=== PATIENT | female | born 1955 | race Caucasian/White ===

== ENCOUNTER 2021-04-24 07:50 | Outpatient (CLI) | payer MEDICARE, OTHER ==
[2021-04-24 14:40] LABS: BASOPHILS # (AUTO) 0.1 10^3/uL (0.0-0.1); BASOPHILS % (AUTO) 1.4 %; EOSINOPHILS # (AUTO) 0.1 10^3/uL (0.0-0.7); EOSINOPHILS % (AUTO) 2.4 %; HCT - HEMATOCRIT 37.3 % (37.0-47.0); HGB - HEMOGLOBIN 12.2 g/dL (12.0-16.0); LYMPHOCYTES # (AUTO) 1.6 10^3/uL (1.5-3.5); LYMPHOCYTES % (AUTO) 37.2 %; MEAN CORPUSCULAR HEMOGLOBIN 30.3 pg (27.0-31.0); MEAN CORPUSCULAR HGB CONC 32.7 g/dL (32.0-36.0); MEAN CORPUSCULAR VOLUME 92.6 fL (81.0-99.0); MEAN PLATELET VOLUME 8.9 fL (7.9-10.8); MONOCYTES # (AUTO) 0.5 10^3/uL (0.0-1.0); MONOCYTES % (AUTO) 11.2 %; NEUTROPHILS % (AUTO) 47.6 %; PLT - PLATELET COUNT 241 10^3/uL (130-450); RED BLOOD COUNT 4.03 10^6/uL (4.20-5.40); RED CELL DISTRIBUTION WIDTH 12.7 % (12.0-15.0); WHITE BLOOD COUNT 4.2 x10^3/uL (4.8-10.8)
[2021-04-24 14:59] LABS: ALBUMIN/GLOBULIN RATIO 1.9 (1.0-2.2); ALKALINE PHOSPHATASE 22 IU/L (42-121); ALT ALANINE AMINOTRANSFERASE 25 IU/L (10-60); AST ASPARTATE AMINOTRANSFERASE 28 IU/L (10-42); BUN - BLOOD UREA NITROGEN 16 mg/dL (6-20); CALCIUM 9.9 mg/dL (8.5-10.3); CARBON DIOXIDE - CO2 27 mmol/L (21-32); CHLORIDE 96 mmol/L (101-111); CHOL/HDL RATIO 1.9 (<4.4); CHOLESTEROL 199 mg/dL; CREATININE 0.9 mg/dL (0.4-1.0); GFR - MDRD 63 (>89); GLUCOSE 88 mg/dL (70-100); HDL CHOLESTEROL 105 mg/dL; LDL CHOLESTEROL,CALCULATED 72 mg/dL; LDL/HDL RATIO 0.7 (<4.4); POTASSIUM 4.2 mmol/L (3.5-5.0); SODIUM 134 mmol/L (135-145); TOTAL PROTEIN 7.6 g/dL (6.7-8.2); TRIGLYCERIDES 111 mg/dL; VLDL CHOLESTEROL 22 mg/dL
[2021-04-24 15:04] LABS: THYROID STIMULATING HORMONE 0.44 uIU/mL (0.34-5.60)
[2021-04-24 15:24] LABS: BILIRUBIN,TOTAL 0.7 mg/dL (0.2-1.0)
== END 2021-04-24 07:51 | disposition home or self-care (01) ==
LOC: LAB.S 07:50
PROVIDERS: ATTEND Registered Nurse
DX: E03.9 Hypothyroidism, unspecified (principal); E78.5 Hyperlipidemia, unspecified; F32.9 Major depressive disorder, single episode, unspecified; I10 Essential (primary) hypertension
CPT/HCPCS: 36415; 80053; 80061; 83721; 84443; 85025

== ENCOUNTER 2021-07-21 16:40 | Outpatient (CLI) | payer MEDICARE, OTHER | END 2021-07-21 16:41 | disposition home or self-care (01) | LOC: COV 16:40 | PROVIDERS: ATTEND Family Medicine | DX: R05.9 Cough, unspecified (principal); R53.83 Other fatigue; R07.0 Pain in throat; J34.89 Other specified disorders of nose and nasal sinuses; Z20.822 Contact with and (suspected) exposure to COVID-19 ==

== ENCOUNTER 2021-08-02 13:05 | Outpatient (CLI) | payer MEDICARE, OTHER ==
--- NOTE | 2021-08-04 10:21 | Mammography Report ---
BILATERAL DIGITAL SCREENING MAMMOGRAM 3D/2D: 08/02/2021 CLINICAL: Routine screening. Comparison is made to exams dated: 09/27/2019 mammogram, 10/05/2017 mammogram, 07/24/2015 mammogram, and 10/06/2011 mammogram - [facility]. The tissue of both breasts is heterogeneously dense. This may lower the sensitivity of mammography. No significant masses, calcifications, or other findings are seen in either breast. There has been no significant interval change. IMPRESSION: NEGATIVE There is no mammographic evidence of malignancy. A 1 year screening mammogram is recommended. This exam was interpreted at Station ID: [id number]. NOTE: For mammograms, a report in lay terms will be sent to the patient. Approximately 15% of breast malignancies will not be visualized mammographically. In the management of a palpable breast mass, a negative mammogram must not discourage biopsy of a clinically suspicious lesion. Electronically Signed By: Ángel Castillo M.D. [facility] [email or web address]:08/03/2021 13:37:12 ACR BI-RADS Category 1: Negative 3341F PARENCHYMAL PATTERN: (D) - The breast(s) demonstrate(s) heterogeneously dense fibroglandular ganesh galan. BI-RADS CATEGORY: (1) - 1 RECOMMENDATION: (ANNUAL) - Recommend routine annual screening mammography. [id number] 1 year screening LATERALITY: (B)
== END 2021-08-02 13:06 | disposition home or self-care (01) ==
LOC: DI.S 13:05
DX: Z12.31 Encounter for screening mammogram for malignant neoplasm of breast (principal)

== ENCOUNTER 2021-09-23 09:47 | Emergency (ER) | payer MEDICARE, OTHER ==
--- NOTE | 2021-09-23 12:26 | ED Physician Documentation ---
PD [facility] HEENT - Stated complaint Stated Complaint: L EAR PX - Chief complaint Chief Complaint: Heent - History obtained from History obtained from: Patient - History of Present Illness Timing - onset: How many days ago (few) Timing - duration: Days (few) Timing - details: Gradual onset, Still present Location: Left ear. No: Throat, Mouth Improves: No: Medication (she was using Ciprodex drops as has had OE in the past and treating it with leftover meds from prior. No improvement over past day with its use.) Associated symptoms: No: Fever, Congestion, Rhinorrhea, Unable to swallow, Headache Similar symptoms before: Diagnosis (prior episodes have been from OE. This feels different though with hearing decreased and not improving.) Recently seen: Not recently seen Review of Systems Constitutional: denies: Fever, Chills Ears: reports: Loss of hearing. denies: Drainage/discharge Nose: denies: Rhinorrhea / runny nose, Congestion, Sinus pressure / pain Throat: denies: Sore throat Respiratory: denies: Cough Skin: denies: Rash, Lesions PD PAST MEDICAL HISTORY - Past Medical History Cardiovascular: Hypertension, High cholesterol Respiratory: None Neuro: None GI: GERD - Present Medications Home Medications: Ambulatory Orders Medication Instructions Recorded Confirmed Chlorthalidone 25 mg ORAL DAILY 09/23/21 09/23/21 Ciproflox/Dexameth Otic Drops 4 drops LEFTEAR BID 5 Days #7.5 ml 09/23/21 [Ciprodex Otic Drops] Escitalopram Oxalate 20 mg PO DAILY 09/23/21 09/23/21 Fenofibrate,Micronized 200 mg PO DAILY 09/23/21 09/23/21 [Fenofibrate] Levothyroxine [Synthroid] 112 mcg PO QDAC 09/23/21 09/23/21 Lisinopril [Zestril] 20 mg PO DAILY 09/23/21 09/23/21 Pantoprazole [Protonix] 40 mg PO DAILY 09/23/21 09/23/21 Rosuvastatin Calcium [Crestor] 40 mg PO DAILY PM 09/23/21 09/23/21 cephALEXin [Keflex] 500 mg PO TID #20 cap 09/23/21 - Allergies Allergies/Adverse Reactions: Allergies Allergy/AdvReac Type Severity Reaction Status Date / Time Iodinated Contrast Media Allergy Hives Verified 09/23/21 10:01 PD ED PE NORMAL - Vitals Vital signs reviewed: Yes - General General: Alert and oriented X 3, No acute distress, Well developed/nourished - HEENT HEENT: Pharynx benign. No: Ears normal (right appears normal. Left ear with some wax in canal but not obstructing. The canal has some medial irritation but not red/swollen. The TM has redness and appearing fluid behind. Poor mobility with her trying ear pressure maneuver. ) Results - Vitals Vitals: Oxygen O2 Source Room air PD MEDICAL DECISION MAKING - ED course Complexity details: considered differential, d/w patient Departure - Departure Disposition: Home, Self Care Clinical Impression: Otitis media Qualifiers: Otitis media type: suppurative Chronicity: acute Laterality: left Recurrence: non-recurrent Spontaneous tympanic membrane rupture: without spontaneous rupture Qualified Code(s): H66.002 - Acute suppurative otitis media without spontaneous rupture of ear drum, left ear Condition: Stable Record reviewed to determine appropriate education?: Yes Instructions: ED Otitis Media Acute Adult Follow-Up: Allyssa Sinclair ARNP [Primary Care Provider] - [facility] [Provider Group] Prescriptions: Ciproflox/Dexameth Otic Drops [Ciprodex Otic Drops] 4 drops LEFTEAR BID 5 Days #7.5 ml cephALEXin [Keflex] 500 mg PO TID #20 cap Comments: The eardrum does appear reddened with some fluid behind it consistent with middle ear infection. The canal has some mild irritation and a mild amount of wax. You could use some wax drops in or peroxide with water to help loosen the earwax so that the drops get in there more effectively. The wax is not blocking the passageway per se. Cephalexin antibiotic 3 times a day for a week as directed. You can continue the eardrops twice daily for the next few days as well. Tylenol or ibuprofen as needed for pains. I transmitted the prescriptions to [facility] in [place]. Discharge Date/Time: 09/23/21 12:58
[2021-09-23] MEDS ORDERED: cephALEXin 250 MG CAPSULE PO STA (12:43)
[2021-09-23] MEDS ORDERED: CHERRY SYRUP 10 ML UDC PO ONE (12:43)
[2021-09-23] MEDS ORDERED: DEXAMETHASONE 10 MG/ML VIAL PO STA (12:43)
[2021-09-23] MEDS ORDERED: ACETAMINOPHEN 325 MG TABLET PO STA (12:43)
[2021-09-23 12:55] VITALS: BP 165/93
== END 2021-09-23 12:58 | disposition home or self-care (01) ==
LOC: ED 09:47
DX: H66.002 Acute suppurative otitis media without spontaneous rupture of ear drum, left ear (principal); I10 Essential (primary) hypertension
CPT/HCPCS: 99282; 99283; A9270

== ENCOUNTER 2022-07-07 07:10 | Outpatient (CLI) | payer MEDICARE, OTHER ==
[2022-07-07 14:35] LABS: BASOPHILS # (AUTO) 0.1 10^3/uL (0.0-0.1); BASOPHILS % (AUTO) 1.3 %; EOSINOPHILS # (AUTO) 0.1 10^3/uL (0.0-0.7); EOSINOPHILS % (AUTO) 1.1 %; HCT - HEMATOCRIT 37.2 % (37.0-47.0); HGB - HEMOGLOBIN 12.1 g/dL (12.0-16.0); LYMPHOCYTES # (AUTO) 2.3 10^3/uL (1.5-3.5); LYMPHOCYTES % (AUTO) 36.9 %; MEAN CORPUSCULAR HEMOGLOBIN 30.1 pg (27.0-31.0); MEAN CORPUSCULAR HGB CONC 32.5 g/dL (32.0-36.0); MEAN CORPUSCULAR VOLUME 92.5 fL (81.0-99.0); MEAN PLATELET VOLUME 8.8 fL (7.9-10.8); MONOCYTES # (AUTO) 0.5 10^3/uL (0.0-1.0); MONOCYTES % (AUTO) 7.3 %; NEUTROPHILS # (AUTO) 3.3 10^3/uL (1.5-6.6); NEUTROPHILS % (AUTO) 53.1 %; PLT - PLATELET COUNT 299 10^3/uL (130-450); RED BLOOD COUNT 4.02 10^6/uL (4.20-5.40); RED CELL DISTRIBUTION WIDTH 12.3 % (12.0-15.0); WHITE BLOOD COUNT 6.1 x10^3/uL (4.8-10.8)
[2022-07-07 15:19] LABS: THYROID STIMULATING HORMONE 0.35 uIU/mL (0.34-5.60)
[2022-07-07 15:32] LABS: ALBUMIN/GLOBULIN RATIO 1.9 (1.0-2.2); ALKALINE PHOSPHATASE 26 IU/L (42-121); ALT ALANINE AMINOTRANSFERASE 21 IU/L (10-60); AST ASPARTATE AMINOTRANSFERASE 27 IU/L (10-42); BILIRUBIN,TOTAL 0.7 mg/dL (0.2-1.0); BUN - BLOOD UREA NITROGEN 14 mg/dL (6-20); CALCIUM 10.1 mg/dL (8.5-10.3); CARBON DIOXIDE - CO2 27 mmol/L (21-32); CHLORIDE 98 mmol/L (101-111); CHOLESTEROL 206 mg/dL; CREATININE 0.9 mg/dL (0.4-1.0); GFR - MDRD 62 (>89); GLUCOSE 95 mg/dL (70-100); HDL CHOLESTEROL 69 mg/dL; LDL CHOLESTEROL,CALCULATED 88 mg/dL; LDL/HDL RATIO 1.3 (<4.4); SODIUM 136 mmol/L (135-145); TOTAL PROTEIN 7.7 g/dL (6.7-8.2); TRIGLYCERIDES 244 mg/dL; VLDL CHOLESTEROL 49 mg/dL
== END 2022-07-07 07:11 | disposition home or self-care (01) ==
LOC: LAB.S 07:10
PROVIDERS: ATTEND Registered Nurse
DX: E78.5 Hyperlipidemia, unspecified (principal); E03.9 Hypothyroidism, unspecified; Z79.899 Other long term (current) drug therapy
CPT/HCPCS: 36415; 80053; 80061; 83721; 84443; 85025

== ENCOUNTER 2022-07-07 09:00 | Outpatient (CLI) | payer MEDICARE, OTHER ==
[2022-07-07 14:55] LABS: BILIRUBIN,URINE NEGATIVE (NEGATIVE); GLUCOSE, URINE (UA) NEGATIVE (NEGATIVE); KETONES,URINE (UA) NEGATIVE (NEGATIVE); LEUKOCYTE ESTERASE, URINE SMALL (NEGATIVE); NITRITE,URINE NEGATIVE (NEGATIVE); OCCULT BLOOD,URINE TRACE-INTA (NEGATIVE); PROTEIN,URINE 30 mg/dL (NEGATIVE); UROBILINOGEN,URINE 0.2 (NORMAL) E.U./dL (NORMAL)
[2022-07-07 14:57] LABS: CLARITY,URINE HAZY (CLEAR)
[2022-07-07 15:12] LABS: BACTERIA,URINE Few /HPF (None Seen); RBC,URINE 0-5 /HPF (0-5); SQUAMOUS EPITHELIAL CELL,UR FEW Squamous (<= Few); WBC,URINE >25 /HPF (0-5)
== END 2022-07-07 23:59 | disposition home or self-care (01) ==
LOC: LAB.S 09:00
PROVIDERS: ATTEND Emergency Medicine
DX: R30.0 Dysuria (principal); E78.5 Hyperlipidemia, unspecified; Z79.899 Other long term (current) drug therapy; E03.9 Hypothyroidism, unspecified
CPT/HCPCS: 36415; 80053; 80061; 81001; 83721; 84443; 85025; 87086; 87181

== ENCOUNTER 2022-08-16 09:59 | Outpatient (CLI) | payer MEDICARE, OTHER ==
--- NOTE | 2022-08-17 11:14 | Mammography Report ---
BILATERAL DIGITAL SCREENING MAMMOGRAM 3D/2D: 08/16/2022 CLINICAL: Routine screening. Comparison is made to exams dated: 08/02/2021 mammogram - , 09/27/2019 m ammogram, and 10/05/2017 mammogram - [facility]. Both breasts are heterogeneously dense, which may obscure small masses (category c / 51-75% glandular tissue). No significant masses, calcifications, or other findings are seen in either breast. There has been no significant interval change. IMPRESSION: NEGATIVE There is no mammographic evidence of malignancy. A 1 year screening mammogram is recommended. Based on the Tyrer Cuzick model (a risk assessment model) the patients lifetime risk is 9.6% and her 10 year risk is 5.1%. According to the ACR, ACS, and NCCN guidelines, an annual breast MRI exam magdy g with mammogram is recommended if the patients lifetime risk is 20% or greater. This exam was interpreted at Station ID: [id number]. NOTE: For mammograms, a report in lay terms will be sent to the patient. Approximately 15% of breast malignancies will not be visualized mammographically. In the management of a palpable breast mass, a negative mammogram must not discourage biopsy of a clinically suspicious lesion. Electronically Signed By: Robbie flores/veronica:08/16/2022 11:44:42 ACR BI-RADS Category 1: Negative 3341F PARENCHYMAL PATTERN: (D) - The breast(s) demonstrate(s) heterogeneously dense fibroglandular parmikalay ma. BI-RADS CATEGORY: (1) - 1 RECOMMENDATION: (ANNUAL) - Recommend routine annual screening mammography. [id number] 1 year screening LATERALITY: (B)
== END 2022-08-16 10:00 | disposition home or self-care (01) ==
LOC: DI.S 09:59
PROVIDERS: ATTEND Registered Nurse
DX: Z12.31 Encounter for screening mammogram for malignant neoplasm of breast (principal)

== ENCOUNTER 2023-03-17 11:58 | Day surgery (SDC) | payer MEDICARE, OTHER ==
[2023-03-17] MEDS ORDERED: LACTATED RINGERS 1,000 ML IV ONE (12:04)
--- NOTE | 2023-03-17 13:06 | ANESTHESIA ---
Pre-Anesthesia VS, & Labs - Diagnosis screening - Procedure colonoscopy Vital Signs: Temp Pulse Resp BP Pulse Ox O2 Flow Rate 36.4 C L 90 16 120/70 100 0 03/17/23 12:13 03/17/23 12:13 03/17/23 12:13 03/17/23 12:13 03/17/23 12:13 03/17/23 12:13 Height: 5 ft 7 in Weight (kg): 60 kg Body Mass Index: 20.7 BMI Classification: Normal - NPO Other (prep as directed) - Is Patient ?: No Home Medications and Allergies Chlorthalidone 25 mg ORAL DAILY 09/23/21 Escitalopram Oxalate 20 mg PO DAILY 09/23/21 Fenofibrate,Micronized [Fenofibrate] 200 mg PO DAILY 09/23/21 Levothyroxine [Synthroid] 112 mcg PO QDAC 09/23/21 Lisinopril [Zestril] 20 mg PO DAILY 09/23/21 Pantoprazole [Protonix] 40 mg PO DAILY 09/23/21 Rosuvastatin Calcium [Crestor] 40 mg PO DAILY PM 09/23/21 Allergies/Adverse Reactions: Allergies Allergy/AdvReac Type Severity Reaction Status Date / Time Iodinated Contrast Media Allergy Hives Verified 03/16/23 13:15 Anes History & Medical History - Anesthetic History Anesthesia Complications: reports: No previous complications - Medical History Cardiovascular: reports: Hypertension, High cholesterol Pulmonary: reports: None Gastrointestinal: reports: GERD Urinary: reports: None Neuro: reports: None Musculoskeletal: reports: None Endocrine/Autoimmune: reports: HyPOthyroidism Blood Disorders: reports: None Skin: reports: None Smoking Status: Never smoker Psychosocial: reports: Alcohol (rare) - Surgical History Eyes Ears Nose Throat (EENT): reports: Other Exam General: Alert, Oriented x3 Dental: WNL Mouth Openin Fingerbreadth Neck Mobility: Normal Mallampati classification: II Thyromental Distance: 4-6 cm Respiratory: Lungs clear Cardiovascular: Regular rate Plan Anesthesia Type: Total IV Consent for Procedure(s) Verified and Reviewed: Yes Code Status: Attempt Resuscitation ASA classification: 2-Mild systemic disease Is this case an emergency?: No
[2023-03-17] MEDS ORDERED: PROPOFOL 500 MG/50 ML 500 MG/50 ML VIAL ONE (13:18)
[2023-03-17] MEDS ORDERED: GLYCOPYRROLATE 1 MG/5 ML VIAL ONE (13:51)
[2023-03-17] MEDS ORDERED: LACTATED RINGERS 300 ML IV ONE (14:14)
[2023-03-17 14:16] VITALS: BP 113/75
--- NOTE | 2023-03-17 14:27 | ANESTHESIA POST OP EVALUATION ---
Anesthesia Post Eval - Post Anesthesia Eval Vitals: Last Vital Signs Temp 36.5 C 03/17/23 14:13 Pulse 87 03/17/23 14:13 Resp 16 03/17/23 14:13 BP 113/75 03/17/23 14:13 Pulse Ox 96 03/17/23 14:13 O2 Flow Rate 0 03/17/23 12:13 CV Function Including HR & BP: Stable Pain Control: Satisfactory Nausea & Vomiting: Negative Mental Status: Baseline Respiratory Status: Airway Patent Hydration Status: Satisfactory Anesthesia Complications: None
== END 2023-03-17 11:59 | disposition home or self-care (01) ==
LOC: SDS 11:58
PROVIDERS: ATTEND Surgery
PROC: 0DBL8ZZ Excision of Transverse Colon, Via Natural or Artificial Opening Endoscopic (ICD-10-PCS; principal; 2023-03-17 13:00)
DX: Z12.11 Encounter for screening for malignant neoplasm of colon (principal); D12.3 Benign neoplasm of transverse colon; K64.4 Residual hemorrhoidal skin tags
CPT/HCPCS: 45380; J7120

== ENCOUNTER 2023-08-22 08:40 | Outpatient (CLI) | payer MEDICARE, OTHER ==
--- NOTE | 2023-08-23 12:01 | Mammography Report ---
BILATERAL DIGITAL SCREENING MAMMOGRAM 3D/2D: 08/22/2023 CLINICAL: Routine screening. Comparison is made to exams dated: 08/16/2022 mammogram, 08/02/2021 mammogram - [facility], and 09/27/2019 mammogram - [facility]. Both breasts are heterogeneously dense, which may obscure small masses (category c / 51-75% glandular tissue). There are benign calcifications in the left breast. No significant masses, calcifications, or other findings are seen in either breast. There has been no significant interval change. IMPRESSION: BENIGN There is no mammographic evidence of malignancy. A 1 year screening mammogram is recommended. Based on the Tyrer Cuzick model (a risk assessment model) the patients lifetime risk is 8.9% and her 10 year risk is 4.9%. According to the ACR, ACS, and NCCN guidelines, an annual breast MRI exam magdy g with mammogram is recommended if the patients lifetime risk is 20% or greater. This exam was interpreted at Station ID: [id number]. NOTE: For mammograms, a report in lay terms will be sent to the patient. Approximately 15% of breast malignancies will not be visualized mammographically. In the management of a palpable breast mass, a negative mammogram must not discourage biopsy of a clinically suspicious lesion. Electronically Signed By: Ángel renae/veronica:08/23/2023 08:10:13 ACR BI-RADS Category 2: Benign Finding(s) 3342F PARENCHYMAL PATTERN: (D) - The breast(s) demonstrate(s) heterogeneously dense fibroglandular ganesh galan. BI-RADS CATEGORY: (2) - 2 Mammogram [id number] 1 year screening LATERALITY: (B)
== END 2023-08-22 08:41 | disposition home or self-care (01) ==
LOC: DI.S 08:40
PROVIDERS: ATTEND Registered Nurse
DX: Z12.31 Encounter for screening mammogram for malignant neoplasm of breast (principal); R92.333 Mammographic heterogeneous density, bilateral breasts

== ENCOUNTER 2023-11-28 00:18 | Outpatient (CLI) | payer MEDICARE, OTHER | END 2023-11-28 00:19 | disposition critical access hospital (66) | LOC: EMS 00:18 | DX: R55 Syncope and collapse (principal); R29.6 Repeated falls; S20.214A Contusion of middle front wall of thorax, initial encounter; S00.81XA Abrasion of other part of head, initial encounter; W18.30XA Fall on same level, unspecified, initial encounter; Y92.003 Bedroom of unspecified non-institutional (private) residence as the place of occurrence of the external cause | CPT/HCPCS: A0425; A0427 ==

== ENCOUNTER 2023-11-28 00:53 | Emergency (ER) | payer MEDICARE, OTHER ==
[2023-11-28] MEDS: SODIUM CHLORIDE 0.9% 1,000 ML IV STA (01:34)
[2023-11-28] MEDS: ONDANSETRON 4 MG/2 ML VIAL IVP STA (01:34)
[2023-11-28 01:40] LABS: BASOPHILS % (AUTO) 0.8 %; EOSINOPHILS % (AUTO) 0.8 %; HCT - HEMATOCRIT 33.7 % (37.0-47.0); HGB - HEMOGLOBIN 11.1 g/dL (12.0-16.0); LYMPHOCYTES # (AUTO) 1.8 10^3/uL (1.5-3.5); LYMPHOCYTES % (AUTO) 34.4 %; MEAN CORPUSCULAR HEMOGLOBIN 31.3 pg (27.0-31.0); MEAN CORPUSCULAR HGB CONC 32.9 g/dL (32.0-36.0); MEAN CORPUSCULAR VOLUME 94.9 fL (81.0-99.0); MEAN PLATELET VOLUME 8.8 fL (7.9-10.8); MONOCYTES # (AUTO) 0.4 10^3/uL (0.0-1.0); MONOCYTES % (AUTO) 7.7 %; NEUTROPHILS # (AUTO) 2.9 10^3/uL (1.5-6.6); NEUTROPHILS % (AUTO) 56.1 %; PLT - PLATELET COUNT 202 10^3/uL (130-450); RED BLOOD COUNT 3.55 10^6/uL (4.20-5.40); RED CELL DISTRIBUTION WIDTH 13.1 % (12.0-15.0); WHITE BLOOD COUNT 5.2 x10^3/uL (4.8-10.8)
[2023-11-28 02:05] LABS: ALBUMIN 3.1 g/dL (3.2-5.5); ALBUMIN/GLOBULIN RATIO 1.8 (1.0-2.2); BILIRUBIN,TOTAL 0.4 mg/dL (0.2-1.0); CALCIUM 8.3 mg/dL (8.5-10.3); CREATININE 0.6 mg/dL (0.6-1.3); POTASSIUM 3.4 mmol/L (3.5-4.5); TOTAL PROTEIN 4.8 g/dL (6.4-8.9)
[2023-11-28 02:28] VITALS: O2SAT 100
--- NOTE | 2023-11-28 02:55 | ED Physician Documentation ---
History of Present Illness - Stated complaint Stated Complaint: FALL - Chief complaint Chief Complaint: General - History obtained from History obtained from: Patient, Family - Additonal information Additional information: The pt is brought by EMS for CC of fall. The pt states she got up from the bed, felt very weak, and fell to the floor. The medics report that the family heard her fall and came immediately and found her on the floor. They couldn't feel a pulse, so they started CPR. The pt states she actually remembers the family starting CPR, but couldn't move at the time. After a few seconds of CPR, medics report that the pt began to stir, and was awake and talking by the time they got there. Medics found a BG of 47, and pt was given dextrose. She's been awake and talking throughout the entire transport, with no further hypoglycemia. The pt and daughter report that the pt has had a worsening food aversion for about the past 9 months. She has been eatimg only small amounts of certain foods, most recently tomato soup and gelato. If she tries to eat anything else, she gags, and cannot swallow. She is followed by her PCP, as well as having been extensively evaluated by GI, who cannot find a primary GI etiology. Pt is now awaiting further evaluation by neuropsych. She reports that neither GI nor her PCP has made any recommendation for TPN or a G-tube in the meantime. The pt has lost a large amount of weight since the symptoms began, and has been increasingly weak. Daughter states she and her are here to stay with the pt and try to get things sorted out. Pt feels back to baseline now, and other than some mild soreness or her chest after the CPR, denies complaints. PD PAST MEDICAL HISTORY - Past Medical History Past Medical History: Yes Cardiovascular: Hypertension, High cholesterol Respiratory: None Neuro: None Endocrine/Autoimmune: HyPOthyroidism GI: GERD [employer] MAINTENANCE WORKER: None : None HEENT: Chronic hearing loss Psych: Depression, Anxiety Musculoskeletal: None Derm: None - Past Surgical History Past Surgical History: Yes HEENT: Other - Present Medications Home Medications: Ambulatory Orders Medication Instructions Recorded Confirmed Chlorthalidone 25 mg ORAL DAILY 09/23/21 03/16/23 Escitalopram Oxalate 20 mg PO DAILY 09/23/21 11/28/23 Fenofibrate,Micronized 200 mg PO DAILY 09/23/21 03/16/23 [Fenofibrate] Levothyroxine [Synthroid] 112 mcg PO QDAC 09/23/21 11/28/23 Lisinopril [Zestril] 20 mg PO DAILY 09/23/21 11/28/23 Pantoprazole [Protonix] 40 mg PO DAILY 09/23/21 11/28/23 Rosuvastatin Calcium [Crestor] 40 mg PO DAILY PM 09/23/21 11/28/23 Metoclopramide [Reglan] 10 mg PO Q6H PRN 11/28/23 11/28/23 Ondansetron Odt [Zofran] 4 mg TL Q6H PRN #10 tablet 11/28/23 - Allergies Allergies/Adverse Reactions: Allergies Allergy/AdvReac Type Severity Reaction Status Date / Time codeine Allergy Unknown Verified 11/28/23 01:16 Iodinated Contrast Media Allergy Hives Verified 11/28/23 01:16 - Social History Does the pt smoke?: No Smoking Status: Never smoker Does the pt drink ETOH?: Yes Does the pt have substance abuse?: No - Immunizations Immunizations are current?: Yes PD ED PE NORMAL - Vitals Vital signs reviewed: Yes - General General: Alert and oriented X 3, No acute distress, Other (Pt is thin, but not emaciated. Appears older than stated age.) - HEENT HEENT: Atraumatic, PERRL, EOMI, Moist mucous membranes - Neck Neck: Supple, no meningeal sign - Cardiac Cardiac: RRR, No murmur - Respiratory Respiratory: No respiratory distress, Clear bilaterally - Abdomen Abdomen: Soft, Non tender, Non distended - Derm Derm: Warm and dry, Other (Mild pallor; ) - Extremities Extremities: No deformity - Neuro Neuro: Alert and oriented X 3 - Psych Psych: Normal mood, Normal affect Results - Vitals Vitals: Oxygen O2 Source Room air - EKG (time done) 0122 EKG releavant findings:: EKG personally interpreted by author of this note. Relevant findings are: Rate: Rate (enter#) (78) Rhythm: NSR [place]: Normal Intervals: RBBB QRS: Normal Ischemia: Normal ST segments Compare to prior EKG: Old EKG unavailable Computer interpretation: Agree with computer - Labs Labs: Laboratory Tests 11/28/23 11/28/23 11/28/23 01:09 01:23 01:23 WBC 5.2 RBC 3.55 L Hgb 11.1 L Hct 33.7 L MCV 94.9 MCH 31.3 H MCHC 32.9 RDW 13.1 Plt Count 202 MPV 8.8 Neut # (Auto) 2.9 Lymph # (Auto) 1.8 Barnes # (Auto) 0.4 Eos # (Auto) 0.0 Baso # (Auto) 0.0 Absolute Nucleated RBC 0.00 Nucleated RBC % 0.0 Sodium 128 L Potassium 3.4 L Chloride 97 L Carbon Dioxide 18 L Anion Gap 13.0 BUN 7 Creatinine 0.6 Estimated GFR (MDRD) 99 Glucose 153 H POC Whole Bld Glucose 151 H Calcium 8.3 L Total Bilirubin 0.4 AST 38 ALT 46 Alkaline Phosphatase 41 L Total Protein 4.8 L Albumin 3.1 L Globulin 1.7 L Albumin/Globulin Ratio 1.8 Lipase 13 - Rads (name of study) head CT Relevant Findings:: Final report received, See rad report (neg) PD Medical Decision Making - ED course Complexity details: reviewed results, re-evaluated patient, considered differential, d/w patient, d/w family ED course: The pt was feeling better on re-evaluation. She was not on any insulin or other glycemic modulators. Pt was given a liter of NS, and worked up with labs, EKG, and head CT. EKG and CT were unremarkable. Labs showed mild anemia, mild hyponatremia and hypokalemia, and mild hypoproteinemia. Her glucose remained around 150 in the ED. I spoke at length with the pt and her daughter. Pt would like to go home, and family is going to stay with her. However, I feel that it is very important that the pt speak with her PCP soon about alternatives for nutritional supplementation, including TPN and feeding tube, as the pt will most likely have to wait several months to see neurology, and needs her inadequate food intake addressed in the near future. The daughter and pt both expressed understanding. Pt is stable for d/c home. We have discussed using a walker at home to help prevent falls, and we have discussed the usual indications for return. Departure - Departure Disposition: 01 Home, Self Care Clinical Impression: Generalized weakness, Malnutrition Condition: Stable Instructions: ED Failure To Thrive, ED Weakness [facility] Prescriptions: Ondansetron Odt [Zofran] 4 mg TL Q6H PRN #10 tablet PRN Reason: Nausea / Vomiting Comments: Your EKG and laboratory studies look good. Your blood sugar is normal here, it was found to be quite low by the medics on your way here. Your blood pressure was also low when the medics picked you up, but you responded very well to IV fluids. Your CT of the head showed no bleeding or other acute abnormalities. It is very important that you continue pursuing answers to your condition from the specialists. In the meantime, you should talk to your PA Zeina Sinclair as soon as possible to discuss having IV nutrition (TPN) set up through our MAC clinic. Zeina can also refer you to our surgical clinic to discuss having a feeding tube placed. You should try taking nausea medication to help with some of your nausea and aversions to food and see if this allows you to get more down. A prescription for some nausea medicine has been electronically transmitted to the [facility] in [place]. Please pick this up in the morning and take as needed. Please drink plenty of water also. Please call Zeina's office first thing in the morning to set up a follow-up appointment. Forms: PCP List Discharge Date/Time: 11/28/23 05:27
[2023-11-28 03:55] VITALS: BP 108/62
--- NOTE | 2023-11-28 08:20 | CT Report ---
PROCEDURE: Head WO INDICATIONS: fall/head injury TECHNIQUE: Noncontrast 4.5 mm thick angled axial sections acquired from the foramen magnum to the vertex. For r adiation dose reduction, the following was used: automated exposure control, adjustment of mA and/or kV according to patient size. COMPARISON: None. FINDINGS: Image quality: Excellent. CSF spaces: Basal cisterns are patent. No extra-axial fluid collections. Ventricles are normal in size and shape. Brain: No midline shift. There is age-related volume loss. No intracranial masses or hemorrhage. G ray-white matter interface is normal. Skull and face: Implanted device within right temporoparietal calvarium is seen. Calvarium and visua lized facial bones are intact, without suspicious lesions. Sinuses: Visualized sinuses and mastoids are clear. IMPRESSION: No acute intracranial pathology. Mild atrophy appropriate for patient's age. Findings are concordant with preliminary interpretation provided by [facility]. Reviewed by: Hunter Sandy MD on 11/28/2023 8:18 AM PST Approved by: Hunter Sandy MD on 11/28/2023 8:18 AM PST Station ID: [id number]
== END 2023-11-28 05:27 | disposition home or self-care (01) ==
LOC: ED 00:53
DX: R53.1 Weakness (principal); E46 Unspecified protein-calorie malnutrition; W18.39XA Other fall on same level, initial encounter; Y92.009 Unspecified place in unspecified non-institutional (private) residence as the place of occurrence of the external cause; I10 Essential (primary) hypertension; E78.00 Pure hypercholesterolemia, unspecified; E03.9 Hypothyroidism, unspecified; Z79.899 Other long term (current) drug therapy
CPT/HCPCS: 36415; 80053; 83690; 85025; 93005; 96361; 96374; 99284